=== PATIENT | male | born 1960 | race Two or more races ===

== ENCOUNTER 2016-08-09 15:27 | Emergency (ER) | payer SELFPAY ==
[~2016-08-09] VITALS: Ht 182.9 cm; Wt 74.8 kg
[2016-08-09] MEDS ORDERED: Thiamine HCl 100 MG in D5W 55 ML IVPB SCH (15:45)
[2016-08-09] MEDS ORDERED: Thiamine HCl 100mg/ml Inj ONE (15:51)
--- NOTE | 2016-08-09 16:37 | Emergency Room Report ---
History of Present Illness General Chief Complaint: Alcohol Intoxication Source: Patient, EMS (Geronimo Sheffield M.D.) Present Illness HPI Patient is brought in for intoxication. Bystanders contacted paramedics. They transported him here. The patient's denying any complaints to me. He is unsteady on his feet and also has nystagmus. See medical course for further history. (Geronimo Sheffield M.D.) Allergies: Coded Allergies: No Known Allergies (Unverified , 08/09/16) Patient History Limited by: medical condition Past Medical History: see triage record Social History: Reports: alcohol use Social History Narrative In streets Reviewed Nursing Documentation: PMH: Agreed, PSxH: Agreed (Geronimo Sheffield M.D.) Nursing Documentation-PMH Past Medical History: No Stated History (Geronimo Sheffield M.D.) Review of Systems All Other Systems: limited (Geronimo Sheffield M.D.) Physical Exam Vital Signs Date Time Temp Pulse Resp B/P Pulse Ox O2 Delivery O2 Flow Rate FiO2 08/09/16 15:08 77 16 141/108 100 Room Air Sp02 EP Interpretation: reviewed, normal General Appearance: no apparent distress, alert, non-toxic, thin, other - dishevelled, Chronically Ill Head: normocephalic, atraumatic Eyes: bilateral eye PERRL, bilateral eye Scleral Injection, bilateral eye other - arcus ENT: moist mucus membranes - no lingual macerations - edentulous upper Neck: full range of motion, supple, no bony tend Respiratory: lungs clear, normal breath sounds Cardiovascular #1: regular rate, rhythm Cardiovascular #2: 2+ radial (R) Gastrointestinal: normal inspection, normal bowel sounds, non tender, no mass, non-distended, scaphoid Musculoskeletal: back normal, digits/nails normal, normal range of motion, other - swelling L foot Neurologic: responsive, motor strength/tone normal, DTRs symmetric, sensory intact, other - slurred speech and nystagmus with ataxia Psychiatric: depressed affect Skin: warm/dry, other - ulceration L lateral foot with swelling and no erythema or drainage (Geronimo Sheffield M.D.) Medical Decision Making Diagnostic Impression: Primary Impression: Acute alcoholic intoxication Qualified Codes: F10.120 - Alcohol abuse with intoxication, uncomplicated Additional Impression: Foot ulcer Qualified Codes: 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 Stupor is significant and merits exclusion of bleed or electrolyte abnormality. Labs, CXR, CT ordered. Thiamine and IV hydration also ordered. Patient improved but still slurring his words. He is complaining of pain in his foot. He has a ulcer there on the side without any erythema. There is some swelling in his foot. States walks cane. States sore has been present for many weeks. Denies SI or HI. No NVD, melena, dysuria. Signed out to Dr. Longoria awaiting ability to ambulate. Laboratory Tests Test 08/09/16 16:25 08/09/16 16:53 White Blood Count 6.0 K/UL (4.8-10.8) Red Blood Count 4.34 M/UL (4.70-6.10) L Hemoglobin 14.5 G/DL (14.2-18.0) Hematocrit 45.2 % (42.0-52.0) Mean Corpuscular Volume 104 FL (80-99) H Mean Corpuscular Hemoglobin 33.4 PG (27.0-31.0) H Mean Corpuscular Hemoglobin Concent 32.1 G/DL (32.0-36.0) Red Cell Distribution Width 13.6 % (11.6-14.8) Platelet Count 280 K/UL (150-450) Mean Platelet Volume 5.2 FL (6.5-10.1) L Neutrophils (%) (Auto) 46.5 % (45.0-75.0) Lymphocytes (%) (Auto) 46.6 % (20.0-45.0) H Monocytes (%) (Auto) 5.3 % (1.0-10.0) Eosinophils (%) (Auto) 0.6 % (0.0-3.0) Basophils (%) (Auto) 1.0 % (0.0-2.0) Sodium Level 136 mEQ/L (135-145) Potassium Level 3.9 mEQ/L (3.4-4.9) Chloride Level 94 mEQ/L (98-107) L Carbon Dioxide Level 23 mEQ/L (20-30) Anion Gap 19 (5-15) H Blood Urea Nitrogen 6 mg/dL (7-23) L Creatinine 0.7 mg/dL (0.7-1.2) Estimate Glomerular Filtration Rate > 60 mL/min (>60) Glucose Level 131 mg/dL (74-106) H Calcium Level 9.0 mg/dL (8.6-10.2) Total Bilirubin 0.8 mg/dL (0.0-1.2) Aspartate Amino Transferase (AST) 42 U/L (5-40) H Alanine Aminotransferase (ALT) 11 U/L (3-41) Alkaline Phosphatase 110 U/L (40-129) Total Creatine Kinase 135 U/L (38-174) Total Protein 8.0 g/dL (6.6-8.7) Albumin 3.8 g/dL (3.5-5.2) Globulin 4.2 g/dL Albumin/Globulin Ratio 0.9 (1.0-2.7) L Salicylates Level < 1 mg/dL (10-30) L Acetaminophen Level < 10 ug/mL (10-30) L Serum Alcohol 462 mg/dL Urine Color Yellow Urine Appearance Clear Urine pH 5 (4.5-8.0) Urine Specific Calvin 1.020 (1.005-1.035) Urine Protein 1+ (NEGATIVE) H Urine Glucose (UA) Negative (NEGATIVE) Urine Ketones Negative (NEGATIVE) Urine Occult Blood 1+ (NEGATIVE) H Urine Nitrite Negative (NEGATIVE) Urine Bilirubin Negative (NEGATIVE) Urine Urobilinogen 1 MG/DL (0.0-1.0) H Urine Leukocyte Esterase 1+ (NEGATIVE) H Urine RBC 0-2 /HPF (0 - 0) H Urine WBC 0-2 /HPF (0 - 0) Urine Squamous Epithelial Cells Occasional /LPF Urine Amorphous Sediment Many /LPF (NONE) H Urine Bacteria Occasional /HPF (NONE) Urine Opiates Screen Negative (NEGATIVE) Urine Barbiturates Screen Negative (NEGATIVE) Phencyclidine (PCP) Screen Negative (NEGATIVE) Urine Amphetamines Screen Negative (NEGATIVE) Urine Benzodiazepines Screen Negative (NEGATIVE) Urine Cocaine Screen Negative (NEGATIVE) Urine Marijuana (THC) Screen Positive (NEGATIVE) H (Geronimo Sheffield M.D.) ER Course Patient signed out to me. He presents with alcohol intoxication. Initially he wasn't [place]. Now he able to give his name. He walks to the bathroom without any difficulty. Speaking clearly. Said is not homeless and want to go home. We'll discharge home. (RACIEL LONGORIA M.D.) EKG Diagnostic Results Rate: normal Rhythm: NSR ST Segments: no acute changes - R axis (Geronimo Sheffield M.D.) Rhythm Strip Diag. Results EP Interpretation: yes Rhythm: NSR, no PVC's, no ectopy (Geronimo Sheffield M.D.) Chest X-Ray Diagnostic Results EP Interpretation: Yes Findings: no consolidation, no effusion, no pneumothorax, no acute cardiopulmonary disease, other - COPD Number of Views: 1 (Geronimo Sheffield M.D.) CT/MRI/US Diagnostic Results CT/MRI/US Diagnostic Results : Imaging Test Ordered: head Impression no bleed, fx. Atrophy and calcifications in sinuses (Geronimo Sheffield M.D.) Last Vital Signs Date Time Temp Pulse Resp B/P Pulse Ox O2 Delivery O2 Flow Rate FiO2 08/10/16 00:16 97.6 99 17 109/67 100 Room Air Status: improved (Geronimo Sheffield M.D.) Status: improved (RACIEL LONGORIA M.D.) Disposition: HOME, SELF-CARE Condition: Stable Scripts Acetaminophen (Tylenol) 325 Mg Tablet 650 MG ORAL Q6H Y for Prn Pain/Headache/Temp > 101, #16 TAB 0 Refills Prov: Geronimo Sheffield M.D. 08/09/16 Bacitracin (Bacitracin) 28.4 Gm Oint...g. 1 APPLIC TOPIC BID, #14 GM Prov: Geronimo Sheffield M.D. 08/09/16 Referrals: NOT CHOSEN IPA/,REFERRING (PCP) Patient Instructions: Alcohol Intoxication, [id number] Additional Instructions: Abstain from alcohol. Go to rehabilitation. Followup your Dr. in 2-3 days. Return if worse. Geronimo Sheffield M.D. Aug 09, 2016 16:37 RACIEL LONGORIA M.D. Aug 09, 2016 23:55
[2016-08-09 16:46] LABS: EOSINOPHILS % (AUTO) 0.6 % (0.0-3.0); LYMPHOCYTES % (AUTO) 46.6 % (20.0-45.0); MEAN CORPUSCULAR HEMOGLOBIN 33.4 PG (27.0-31.0); MEAN CORPUSCULAR HGB CONC 32.1 G/DL (32.0-36.0); MEAN CORPUSCULAR VOLUME 104 FL (80-99); MEAN PLATELET VOLUME 5.2 FL (6.5-10.1); MONOCYTES % (AUTO) 5.3 % (1.0-10.0); NEUTROPHILS % (AUTO) 46.5 % (45.0-75.0); PLATELET COUNT 280 K/UL (150-450); RED BLOOD COUNT 4.34 M/UL (4.70-6.10); RED CELL DISTRIBUTION WIDTH 13.6 % (11.6-14.8)
[2016-08-09 17:10] LABS: APPEARANCE,URINE CLEAR; KETONES,URINE NEGATIVE (NEGATIVE); LEUKOCYTE ESTERASE ,URINE 1+ (NEGATIVE); NITRITE,URINE NEGATIVE (NEGATIVE); PH,URINE 5 (4.5-8.0); PROTEIN,URINE 1+ (NEGATIVE); UROBILINOGEN,URINE 1 MG/DL (0.0-1.0)
[2016-08-09 17:11] LABS: ACETAMINOPHEN < 10 ug/mL (10-30); ALANINE AMINOTRANSFERASE 11 U/L (3-41); ALBUMIN/GLOBULIN RATIO 0.9 (1.0-2.7); ANION GAP 19 (5-15); ASPARTATE AMINO TRANSFERASE 42 U/L (5-40); CARBON DIOXIDE 23 mEQ/L (20-30); CHLORIDE 94 mEQ/L (98-107); CREATININE 0.7 mg/dL (0.7-1.2); GLOMERULAR FILTRATION RATE > 60 mL/min (>60); HEMOLYSIS 43; POTASSIUM 3.9 mEQ/L (3.4-4.9); SODIUM 136 mEQ/L (135-145)
[2016-08-09 17:17] LABS: ALCOHOL 462 mg/dL
[2016-08-09 17:25] VITALS: BP 139/92
[2016-08-09 17:25] LABS: AMORPHOUS SEDIMENT,UR MANY /LPF; BACTERIA,URINE OCCASIONAL /HPF; RBC,URINE 0-2 /HPF (0 - 0); SQUAMOUS EPITHELIAL CELL,UR OCCASIONAL /LPF (NONE/OCC); WBC,URINE 0-2 /HPF (0 - 0)
[2016-08-09 19:33] VITALS: BP 133/88
[2016-08-09] MEDS ORDERED: Bacitracin Oint UD TOPIC ONE ×2 (20:37→20:45)
[2016-08-09] MEDS ORDERED: TYLENOL325 MG ORAL (20:44)
[2016-08-09] MEDS ORDERED: BACITRACIN15 GM TOPIC (20:44)
[2016-08-09 22:47] VITALS: BP 115/65
[2016-08-10 00:06] VITALS: BP 109/67
[2016-08-10 00:16] VITALS: BP 109/67
--- NOTE | 2016-08-10 08:54 | Diagnostic Imaging Report ---
Clinical history: Acute chest pain. Technique: Portable AP chest radiograph was obtained. Comparison: None Findings: Increased mild nodular and reticular densities in the upper lungs are nonspecific. There is no pneumonia or pulmonary edema. There is no pleural effusion or pneumothorax. The cardiac and mediastinal silhouettes are normal in appearance. The bony thorax is unremarkable. Impression: Minimal reticular nodular densities in the upper lungs, nonspecific. Consider PA and lateral chest radiographs in full inspiration for more optimal evaluation.
--- NOTE | 2016-08-10 10:06 | Diagnostic Imaging Report ---
\H\CT Brain without Intravenous Contrast INDICATION: \N\Altered level of consciousness\H\ COMPARISON: \N\None\H\ TECHNIQUE: Serial axial images were obtained from the the skull base through the vertex without intravenous contrast. Coronal reformats were obtained. Dose Estimate: Total DLP \N\1421\H\ mGycm CTDIvol \N\70\H\ mGy FINDINGS: Small focal hypodensities in the bilateral basal ganglia may reflect chronic lacunar infarcts. The saldaña white matter differentiation appears normal. There is no evidence of acute intracranial hemorrhage or territorial infarct. Scattered periventricular and subcortical white matter hypodensities are nonspecific but may reflect mild chronic microangiopathy. The cortical sulci, ventricles and extra-axial CSF spaces are mildly enlarged in size for patient's age. There is no space occupying lesion, mass effect or midline shift. The visualized paranasal sinuses and mastoid air cells are clear. The osseous structures are unremarkable. \N\\H\IMPRESSION: 1. No acute intracranial hemorrhage, midline shift or mass effect. 2. Focal hypodensities in the bilateral basal ganglia may reflect chronic lacunar infarcts. 3. Mild cerebral parenchymal volume loss and mild probable changes of chronic microangiopathy. \N\
== END 2016-08-10 00:17 | disposition home or self-care (01) ==
LOC: EDBD 15:27 → EMR 16:20
DX: F10.129 Alcohol abuse with intoxication, unspecified (principal); L97.529 Non-pressure chronic ulcer of other part of left foot with unspecified severity; R41.82 Altered mental status, unspecified; R47.81 Slurred speech; H55.00 Unspecified nystagmus
CPT/HCPCS: 36415; 70450; 71010; 80053; 80300; 81003; 82550; 85025; 96360; 96361; 96374; 96375; 99284; G0480; 80329